=== PATIENT | female | born 1955 | race American Indian/Alaskan Native ===

== ENCOUNTER 2021-03-29 06:42 | Day surgery (SDC) | payer MEDICARE ==
[2021-03-27 13:20] LABS: BUN/Creatinine Ratio 25; Blood Urea Nitrogen 15 mg/dL (7-17); Calcium 9.2 mg/dL (8.4-10.2); Hemolysis Index 0
[2021-03-27 13:34] LABS: Hematocrit 42.4 % (30.3-42.9); Hemoglobin 13.8 gm/dl (10.1-14.3); Mean Corpuscular HGB Conc 33 % (30-34); Mean Corpuscular Volume 82 fl (79-97); Platelet Count 150 K/mm3 (140-440); Red Blood Count 5.16 M/mm3 (3.65-5.03); Red Cell Distribution Width 15.8 % (13.2-15.2)
--- NOTE | 2021-03-28 08:48 | History and Physical Report ---
History of Present Illness Date of examination: 03/27/21 Chief complaint: Postmenopausal Bleeding History of present illness: Pt is a 65 year old -[place] female who presents for surgical evaluation of postmenopausal bleeding. Past History Past Medical History: hypertension Past Surgical History: D&C, other (lipoma excision ) [employer] History: fibroids Family/Genetic History: diabetes, hypertension Social history: no significant social history - Obstetrical History : 2 Para: 2 Hx # Term Pregnancies: 2 Number of Pregnancies: 0 Spontaneous Abortions: 0 Induced : 0 Number of Living Children: 2 Medications and Allergies Allergies Allergy/AdvReac Type Severity Reaction Status Date / Time No Known Allergies Allergy Unverified 03/24/21 18:26 Home Medications Medication Instructions Recorded Confirmed Last Taken Type Acetaminophen [Tylenol] 2 tab PO Q4H PRN 03/24/21 03/24/21 Unknown History Losartan/Hydrochlorothiazide 1 each PO DAILY 03/24/21 03/24/21 Unknown History [Losartan-Hctz 100-25 mg Tab] Potassium Chloride [K-Dur] 10 meq PO QDAY 03/24/21 03/24/21 Unknown History amLODIPine [Norvasc] 5 mg PO DAILY 03/24/21 03/24/21 Unknown History metFORMIN [Glucophage] 500 mg PO QDAY 03/24/21 03/24/21 Unknown History Pravastatin [Pravachol] 20 mg PO QHS 03/27/21 03/27/21 Unknown History Review of Systems All systems: negative - Vital Signs Vital signs: Vital Signs Temp Pulse Resp BP Pulse Ox 98.2 F 86 20 128/94 96 03/27/21 12:25 03/27/21 12:25 03/27/21 12:25 03/27/21 12:25 03/27/21 12:25 Temp Pulse Resp BP Pulse Ox 98.2 F 86 20 128/94 96 03/27/21 12:25 03/27/21 12:25 03/27/21 12:25 03/27/21 12:25 03/27/21 12:25 - Physical Exam Breasts: Positive: deferred Cardiovascular: Regular rate Lungs: Positive: Clear to auscultation Abdomen: Positive: soft (obese ) Extremities: Positive: normal Results Result Diagrams: 03/27/21 06:00 03/27/21 06:00 Abnormal lab results 03/27/21 03/27/21 Range/Units 06:00 06:00 RBC 5.16 H (3.65-5.03) M/mm3 MCH 27 L (28-32) pg RDW 15.8 H (13.2-15.2) % Potassium 3.4 L (3.6-5.0) mmol/L Glucose 114 H (65-100) mg/dL All other labs normal. Assessment and Plan A: Postmenopausal Bleeding Fibroid Uterus Hypertension Obesity P: Proceed with hysteroscopy, dilation and curettage, Myosure endometrial sampling and other indicated procedures
[~2021-03-29 06:42] MED LIST: SODIUM CHLORIDE 0.9% 1000 ML 1,000 ML IV SCH; ceFAZolin/Water 2 GM/20 ML 2 GM/20 ML SYRINGE IV NR
[2021-03-29] MEDS ORDERED: SILVER NITRATE APPLICATOR 1 EA TP ONE (07:16)
--- NOTE | 2021-03-29 07:25 | Anesthesia Consultation ---
Anesthesia Consult and Med Hx Date of service: 03/29/21 - Airway Anesthetic Teeth Evaluation: Good ROM Head & Neck: Adequate Mental/Hyoid Distance: Adequate Mallampati Class: Class II Intubation Access Assessment: Good - Pulmonary Exam CTA: Yes - Cardiac Exam Cardiac Exam: RRR - Pre-Operative Health Status ASA Pre-Surgery Classification: ASA3 Proposed Anesthetic Plan: General - Cardiovascular System Hx Hypertension: Yes - Central Nervous System Hx Psychiatric Problems: No - Endocrine Hx Non-Insulin Dependent Diabetes: Yes - Other Systems Hx Cancer: No
--- NOTE | 2021-03-29 07:26 | Anesthesia Day of Surgery ---
Anesthesia Day of Surgery - Day of Surgery Patient Examined: Yes Patient H&P Reviewed: Yes Patient is NPO: Yes
[2021-03-29 07:30] VITALS: BP 146/89
--- NOTE | 2021-03-29 11:13 | Electrocardiograph Report ---
[facility] Test Date: 2021-03-29 Test Time: 07:28:03 Pat Name: OSEI BAXTER Department: Room: Gender: F Radiology Aide: ALEX : 1955 Requested By: GORDON JACKSON Order Number: [id number] Reading MD: Laurent Escalante Measurements Intervals [place] Rate: 104 P: WA: QRS: 7 QRSD: 82 T: 64 QT: 365 QTc: 468 Interpretive Statements Short runof Atrial fibrillation with periods of sinus beats. Consider anterior infarct No previous ECG available for comparison Electronically Signed On 03-29-2021 11:13:08 EDT by Laurent Escalante
== END 2021-03-29 06:43 | disposition home or self-care (01) ==
LOC: OR 06:42
PROVIDERS: ATTEND Obstetrics & Gynecology
DX: N95.0 Postmenopausal bleeding (principal); D25.9 Leiomyoma of uterus, unspecified; Z20.822 Contact with and (suspected) exposure to COVID-19; I10 Essential (primary) hypertension; E66.9 Obesity, unspecified; Z79.899 Other long term (current) drug therapy; Z98.890 Other specified postprocedural states; Z53.8 Procedure and treatment not carried out for other reasons
CPT/HCPCS: 36415; 80048; 82962; 85027; 93005; J7030; U0003; J0690

== ENCOUNTER 2021-07-12 07:42 | Day surgery (SDC) | payer MEDICARE ==
[2021-07-10 12:20] LABS: Mean Corpuscular HGB Conc 31 % (30-34); Mean Corpuscular Volume 82 fl (79-97); Platelet Count 171 K/mm3 (140-440); Red Blood Count 5.03 M/mm3 (3.65-5.03); Red Cell Distribution Width 15.4 % (13.2-15.2)
[2021-07-10 12:29] LABS: Hemoglobin 12.7 gm/dl (10.1-14.3)
[2021-07-10 12:38] LABS: Blood Urea Nitrogen 12 mg/dL (7-17); Calcium 9.4 mg/dL (8.4-10.2); Hemolysis Index 5
[2021-07-10 12:45] LABS: BUN/Creatinine Ratio 20
--- NOTE | 2021-07-12 07:02 | History and Physical Report ---
History of Present Illness Date of examination: 07/12/21 Chief complaint: Postmenopausal Bleeding History of present illness: Pt is a 66 year old female presents for surgical evaluation of postmenopausal bleeding. She was initially scheduled for this procedure in March 2021 when she a new finding of atrial fibrillation was noted. She underwent Cardiology evaluation in March 2021 and has been cleared for surgery. Past History Past Medical History: hypertension, diabetes, high cholesterol, other (atrial fibrillation ) Past Surgical History: D&C, other (lipoma excision ) [employer]MENT [employer] History: fibroids Family/Genetic History: diabetes, hypertension Social history: no significant social history - Obstetrical History : 2 Para: 2 Hx # Term Pregnancies: 2 Number of Pregnancies: 0 Spontaneous Abortions: 0 Induced : 0 Number of Living Children: 2 Medications and Allergies Allergies Allergy/AdvReac Type Severity Reaction Status Date / Time No Known Allergies Allergy Unverified 03/24/21 18:26 Home Medications Medication Instructions Recorded Confirmed Last Taken Type Losartan/Hydrochlorothiazide 1 each PO DAILY 03/24/21 07/06/21 Unknown History [Losartan-Hctz 100-25 mg Tab] Potassium Chloride [K-Dur] 10 meq PO QDAY 03/24/21 07/06/21 Unknown History amLODIPine [Norvasc] 5 mg PO DAILY 03/24/21 07/06/21 Unknown History metFORMIN [Glucophage] 500 mg PO QDAY 03/24/21 07/06/21 Unknown History Pravastatin [Pravachol] 40 mg PO QHS 07/10/21 07/10/21 Unknown History Active Meds: Active Medications Acetaminophen (Acetaminophen 500 Mg Tab) 1,000 mg PO PREOP ZANDER Lactated Ringer's (Lactated Ringers) 1,000 mls @ 100 mls/hr IV DIRECT ZANDER Stop: 07/12/21 23:59 Midazolam HCl (Midazolam 2 Mg/2 Ml Inj) 2 mg IV PREOP NR Stop: 07/12/21 23:59 Review of Systems All systems: negative - Vital Signs Vital signs: Vital Signs Temp Pulse Resp BP Pulse Ox 98.5 F 73 16 143/91 97 07/10/21 11:25 07/10/21 11:25 07/10/21 11:25 07/10/21 11:25 07/10/21 11:25 Temp Pulse Resp BP Pulse Ox 98.5 F 73 16 143/91 97 07/10/21 11:25 07/10/21 11:25 07/10/21 11:25 07/10/21 11:25 07/10/21 11:25 - Physical Exam Breasts: Positive: deferred Abdomen: Positive: soft Extremities: Positive: normal Results Result Diagrams: 07/10/21 11:28 07/10/21 11:28 All other labs normal. Assessment and Plan A: Postmenopausal Bleeding Fibroid Uterus Paroxysmal Atrial Fibrillation Hypertension Diabetes Hyperlipidemia P: Proceed with hysteroscopy, dilation and curettage, Myosure endometrial sampling and other indicated procedures
[~2021-07-12 07:42] MED LIST changes: +ACETAMINOPHEN 500 MG TAB PO SCH; +LACTATED RINGERS 1,000 ML IV SCH; +MIDAZOLAM 2 MG/2 ML INJ IV NR; -SODIUM CHLORIDE 0.9% 1000 ML 1,000 ML IV SCH; -ceFAZolin/Water 2 GM/20 ML 2 GM/20 ML SYRINGE IV NR
[2021-07-12] MEDS ORDERED: ceFAZolin/Water 2 GM/20 ML 2 GM/20 ML SYRINGE IV NR (08:00)
--- NOTE | 2021-07-12 08:08 | Anesthesia Consultation ---
Anesthesia Consult and Med Hx Date of service: 07/12/21 - Airway Anesthetic Teeth Evaluation: Good, Partials (upper and lower) ROM Head & Neck: Adequate Mental/Hyoid Distance: Adequate Mallampati Class: Class III Intubation Access Assessment: Possibly Difficult - Pulmonary Exam CTA: Yes - Cardiac Exam Cardiac Exam: RRR - Pre-Operative Health Status ASA Pre-Surgery Classification: ASA3 Proposed Anesthetic Plan: General - Pulmonary Hx Smoking: No Hx Respiratory Symptoms: No - Cardiovascular System Hx Hypertension: Yes (took antihypertensives last night) Hx Heart Attack/AMI: No Hx Percutaneous Transluminal Coronary Angioplasty (PTCA): No Hx Cardia Arrhythmia: Yes (paroxsymal a-fib w/ neg cardiac work up) Hx Pacemaker: No Hx Internal Defibrillator: No - Central Nervous System CVA: No - Endocrine Hx Renal Disease: No Hx Liver Disease: No Hx Non-Insulin Dependent Diabetes: Yes Hx Thyroid Disease: No - Other Systems Hx Obesity: Yes (BMI 30) - Additional Comments Anesthesia Medical History Comments: No hx anesthetic complications. Was previously scheduled for this procedure but was canceled due to new onset a-fib noted pre-procedure. Was evaluated by clinical haematologist and had TTE showing normal function and stress test negative for ischemia. Cardiology note mentions addition of eliquis however patient states that she was told not to start this medication and has not taken it.
[2021-07-12] MEDS ORDERED: HYDROmorphone 1 MG/1 ML INJ IV PRN (08:09)
[2021-07-12] MEDS ORDERED: HYDROcodone/ACETAMINOPHEN 5-325 MG TAB PO PRN (08:09)
[2021-07-12] MEDS ORDERED: ONDANSETRON 4 MG/2 ML INJ IV PRN (08:09)
--- NOTE | 2021-07-12 08:09 | Anesthesia Day of Surgery ---
Anesthesia Day of Surgery - Day of Surgery Patient Examined: Yes Patient H&P Reviewed: Yes Patient is NPO: Yes Cardiac Clearance: Yes
[2021-07-12] MEDS ORDERED: ONDANSETRON 4 MG/2 ML INJ ONE (09:10)
[2021-07-12] MEDS ORDERED: propofoL 200 MG/20 ML VIAL IV ONE (09:10)
[2021-07-12] MEDS ORDERED: dexAMETHasone 20 MG/5 ML VIAL ONE (09:10)
[2021-07-12] MEDS ORDERED: LIDOCAINE PF 100 MG/5 ML (CARDIAC SYRINGE) IV ONE (09:10)
[2021-07-12] MEDS ORDERED: fentaNYL 100 MCG/2 ML INJ ONE (09:10)
[2021-07-12] MEDS ORDERED: SILVER NITRATE APPLICATOR 1 EA TP ONE ×2 (10:32→10:53)
[2021-07-12] MEDS ORDERED: KETOROLAC 30 MG/1 ML INJ ONE (10:38)
--- NOTE | 2021-07-12 11:03 | Operative Report ---
Operative Report Operative Report: Date of Procedure: July 12, 2021 Preoperative Diagnosis: Postmenopausal Bleeding Postoperative Diagnosis: Same Procedure: 1)Hysteroscopy 2)Myosure Endometrial Sampling Surgeon: Willa Hernandes M.D. Findings: 1) 8-10 wks sized aneteverted uterus 2) Some scarring noted at posterior lip of cervix 3) Intrauterine adhesions noted 4) Proliferative endometrium noted Anesthesia: General with LMA Estimated blood loss: 10 mL Specimens: endometrial curettings to pathology Drains: None Complications: None Disposition: Stable to PACU Indications for procedure: Pt is a 66 year old female who presents for surgical evaluation of postmenopausal bleeding Operation in detail: After the risks, benefits, alternatives and complications of the procedure were explained to the patient, she gave informed consent for the procedure. She was subsequently taken to the operating room and placed in the dorsal supine position with her IV noted to be running well. SCDs noted to be in place and functioning. General anesthesia was then induced without difficulty. The patient was then placed in dorsal lithotomy position and prepped and draped in normal sterile fashion. A timeout was performed. An exam under anesthesia was performed yielding an anteverted uterus. A red rubber catheter was used to drain the bladder yielding clear urine. An open sided speculum was then placed into the vagina for adequate visualization of the cervix. The anterior lip of the cervix was then grasped with a tenaculum for traction. The cervix was then dilated to accommodate a #17 Bennett dilator. At this time, a hysteroscope was introduced to visualize the endometrial cavity which revealed intrauterine adhesions and proliferative endometrium. The Myosure device was used to sample the endometrium. All curettings were sent to pathology. A sharp curettage was performed and the curettings were sent to pathology as well.All instruments were removed from the uterus atraumatically. At this time, the single-tooth tenaculum was removed from the cervix. Silver nitrate was placed on the tenaculum puncture sites for hemostasis. All instruments were removed from the vagina atraumatically and the procedure was ended. The patient was placed into the dorsal supine position and extubated without difficulty. She was subsequently taken to the PACU in stable condition. She tolerated the procedure well. All counts were correct 2.
--- NOTE | 2021-07-12 11:18 | Short Stay Summary ---
Short Stay Documentation Date of service: 07/12/21 - History H&P: dictated Social history: no significant social history - Allergies and Medications Current Medications: Allergies No Known Allergies Allergy (Unverified 03/24/21 18:26) Home Medications Medication Instructions Recorded Confirmed Last Taken Type Losartan/Hydrochlorothiazide 1 each PO DAILY 03/24/21 07/06/21 07/11/21 12:00 History [Losartan-Hctz 100-25 mg Tab] Potassium Chloride [K-Dur] 10 meq PO QDAY 03/24/21 07/06/21 07/11/21 12:00 History amLODIPine [Norvasc] 5 mg PO DAILY 03/24/21 07/06/21 07/11/21 12:00 History metFORMIN [Glucophage] 500 mg PO QDAY 03/24/21 07/06/21 07/11/21 12:00 History Pravastatin [Pravachol] 40 mg PO QHS 07/10/21 07/10/21 07/11/21 12:00 History Active Medications Acetaminophen (Acetaminophen 500 Mg Tab) 1,000 mg PO PREOP ZANDER Last Admin: 07/12/21 07:50 Dose: 1,000 mg Hydrocodone Bitart/Acetaminophen (Hydrocodone/Acetaminophen 5-325 Mg Tab) 2 each PO ONCE PRN PRN Reason: Pain, Moderate (4-6) Stop: 07/12/21 12:00 Hydromorphone HCl (Hydromorphone 1 Mg/1 Ml Inj) 0.5 mg IV Q10MIN PRN PRN Reason: Pain , Severe (7-10) Stop: 07/12/21 20:00 Lactated Ringer's (Lactated Ringers) 1,000 mls @ 100 mls/hr IV DIRECT ZANDER Stop: 07/12/21 23:59 Last Admin: 07/12/21 07:50 Dose: 100 mls/hr Cefazolin Sodium (Ancef/Sterile Water 2 Gm/20 Ml) 2 gm in 20 mls @ 80 mls/hr IV PREOP NR; Protocol Stop: 07/12/21 12:00 Midazolam HCl (Midazolam 2 Mg/2 Ml Inj) 2 mg IV PREOP NR Stop: 07/12/21 23:59 Ondansetron HCl (Ondansetron 4 Mg/2 Ml Inj) 4 mg IV ONCE PRN PRN Reason: Nausea And Vomiting Stop: 07/12/21 12:00 - Physical exam Breasts: deferred - Brief post op/procedure progress note Date of procedure: 07/12/21 Pre-op diagnosis: Postmenopausal Bleeding Post-op diagnosis: same Procedure: Hysteroscopy, Myosure endometrial sampling Anesthesia: GETA (LMA ) Findings: 1) 8-10 wks sized aneteverted uterus 2) Some scarring noted at posterior lip of cervix 3) Intrauterine adhesions noted 4) Proliferative endometrium noted Surgeon: ASIM HERNANDES Estimated blood loss: minimal (10 mL) Pathology: list (endometrial curettings) Specimen disposition: to lab Condition: stable - Hospital course Hospital course: Pt underwent hysteroscopy with Myosure endometrial sampling which she tolerated well. She was observed in the PACU until she met discharge criteria. She will follow up with Dr Hernandes in 1 wk. - Disposition Condition at discharge: Stable Disposition: 01 HOME / SELF CARE / HOMELESS - Discharge Diagnoses (1) Postmenopausal bleeding Status: Acute (2) Obesity Status: Acute Qualifiers: Obesity type: unspecified obesity type Obesity classification: adult class 1 (BMI 30 - 34.9) Serious obesity comorbidity presence: unspecified whether serious comorbidity present Body mass index: BMI 30.0-30.9 Qualified Code(s): E66.9 - Obesity, unspecified; Z68.30 - Body mass index [BMI] 30.0-30.9, adult (3) Hypertension Status: Acute (4) PAF (paroxysmal atrial fibrillation) Status: Acute (5) Diabetes Status: Acute Short Stay Discharge Plan Activity: other (Nothing in vagina x 4 wks ) Weight Bearing Status: Full Weight Bearing Diet: regular Follow up with: ASHLY KELLOGG [Primary Care Provider] - 7 Days ASIM HERNANDES MD [Staff Physician] - 7 Days Prescriptions: Ibuprofen [Motrin] 600 mg PO Q6H PRN #30 tablet PRN Reason: Pain HYDROcodone/APAP 5-325 [[place] 5/325] 1 each PO Q6HR PRN #20 tablet PRN Reason: Pain
[2021-07-12 12:29] VITALS: BP 140/94
--- NOTE | 2021-07-12 14:17 | Post Anesthesia Evaluation ---
- Post Anesthesia Evaluation Patient Participated: Yes Airway Patent: Yes Stable Respiratory Function: Yes Nausea/Vomiting: No Temp > 96.8F: Yes Pain Manageable: Yes Adequeate Hydration: Yes Anesthesia Complications: No
== END 2021-07-12 12:12 | disposition home or self-care (01) ==
LOC: OR 07:42
PROVIDERS: ATTEND Obstetrics & Gynecology
DX: N95.0 Postmenopausal bleeding (principal); N85.6 Intrauterine synechiae; N85.8 Other specified noninflammatory disorders of uterus; I10 Essential (primary) hypertension; E11.9 Type 2 diabetes mellitus without complications; M19.90 Unspecified osteoarthritis, unspecified site; E66.9 Obesity, unspecified; Z20.822 Contact with and (suspected) exposure to COVID-19; Z68.30 Body mass index [BMI] 30.0-30.9, adult; Z79.899 Other long term (current) drug therapy; Z79.84 Long term (current) use of oral hypoglycemic drugs; Z98.49 Cataract extraction status, unspecified eye; Z98.890 Other specified postprocedural states
CPT/HCPCS: 36415; 58558; 80048; 82962; 85027; 86850; 86900; 86901; 88305; J0690; J1100; J1885; J2001; J2405; J2704; J3010; J7120; U0003; C1782